=== PATIENT | male | born 1950 | race Caucasian/White ===

== ENCOUNTER 2019-01-18 02:13 | Emergency (ER) | payer MEDICARE, OTHER ==
--- NOTE | 2019-01-18 02:29 | EDM.PDOC ---
ED HPI GENERAL MEDICAL PROBLEM - General Stated Complaint: HEART PROBLEMS Time Seen by Provider: 01/18/19 02:25 Source of Information: Reports: Patient History Limitations: Reports: No Limitations - History of Present Illness INITIAL COMMENTS - FREE TEXT/NARRATIVE: 68-year-old male who states at about 12:45 AM he awoke from sleep feeling somewhat dizzy and "felt funny" and also a little clammy. He had no pain. He had no shortness of breath. He had no arm or leg weakness. He's had no nausea or vomiting. There was no chest or back pain. He did feel somewhat weak. The symptoms persisted and caused him to come to the emergency department for evaluation. He has no symptoms now. He feels back to normal. He has had another episode that was somewhat similar to this but it was associated with a defibrillator discharge. He did not feel any discharge from his defibrillator tonight. He has been eating and drinking normally. He has been taking his medications as directed. There are no other associated signs or symptoms. There are no other modifying factors. Onset: Today (12:45 AM) Duration: Improving (Essentially gone now.) Location: Reports: Other (No pain) Quality: Reports: Other (No pain) Severity: Moderate (The feelings of dizziness, mild clamminess were moderate) Improves with: Reports: None, Other (Nothing seemed to make the symptoms go away ) Worsens with: Reports: None, Other (Nothing seemed to produce the symptoms) Context: Reports: Other (Sleep) Associated Symptoms: Reports: Weakness (Transient) Treatments CUPOLA CHARGER INSULATION: Reports: Other (see below) (Nothing) - Related Data Allergies Allergy/AdvReac Type Severity Reaction Status Date / Time No Known Allergies Allergy Verified 01/18/19 02:38 Home Meds: Home Meds Calcium Carbonate/Vitamin D3 [Calcium 500-Vit D3 200 Tablet] 1 each PO DAILY 08/16 [History] Carvedilol [Coreg] 3.125 mg PO BID 07/16/13 [History] Indomethacin [Indocin] 50 mg PO TID PRN 07/16/13 [History] Multivitamin [Multi-Vitamin Daily] 1 each PO DAILY 07/16/13 [History] Nitroglycerin [Nitrostat] 0.4 mg SL ASDIRECTED PRN 07/16/13 [History] Valsartan [Diovan] 80 mg PO DAILY 07/16/13 [History] atorvaSTATin [Lipitor] 40 mg PO DAILY 07/16/13 [History] Aspirin [Halfprin] 81 mg PO DAILY 01/18/19 [History] Past Medical History Cardiovascular History: Reports: Afib (Paroxysmal A. fib On Eliquis), Automatic Implantable Cardioverter Defibrillators, CAD, Heart Murmur, High Cholesterol, Hypertension, [place] (1998), Pacemaker Hematologic History: Reports: Anticoagulation Therapy (On Eliquis) - Past Surgical History Cardiovascular Surgical History: Reports: Percutaneous Transluminal Angioplasty Neurological Surgical History: Reports: Other (See Below) (Back surgery) Musculoskeletal Surgical History: Reports: Knee Replacement (Right sided) Social & Family History - Tobacco Use Smoking Status *Q: Former Smoker (Quit 1998) - Alcohol Use Alcohol Use History: Yes Alcohol Use Frequency: Socially - Living Situation & Occupation Living situation: Reports: (Here with his ) 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 It is now resolved) HEENT: Reports: No Symptoms Respiratory: Reports: No Symptoms Cardiovascular: Reports: Lightheadedness (Transient with this episode) GI/Abdominal: Reports: No Symptoms, Other (Normal bowel movements with no blood in stool) : Reports: No Symptoms Musculoskeletal: Reports: No Symptoms Skin: Reports: Diaphoresis (As above) Neurological: Reports: Dizziness. Denies: Headache Hematologic/Lymphatic: Reports: No Symptoms Immunologic: Reports: No Symptoms ED EXAM, GENERAL - Physical Exam Exam: See Below Exam Limited By: No Limitations General Appearance: Alert, WD/WN, No Apparent Distress Eye Exam: Bilateral Eye: EOMI, Normal Inspection, PERRL Ears: Normal External Exam, Hearing Grossly Normal Nose: Normal Inspection Throat/Mouth: Normal Inspection, Normal Oropharynx, Normal Voice, No Airway Compromise Head: Atraumatic, Normocephalic Neck: Normal Inspection, Supple, Non-Tender, Full Range of Motion Respiratory/Chest: No Respiratory Distress, Lungs Clear, Normal Breath Sounds Cardiovascular: Normal Peripheral Pulses, Regular Rate, Rhythm, No JVD Peripheral Pulses: 2+: Radial (L), Radial (R), Dorsalis Pedis (L), Dorsalis Pedis (R) GI/Abdominal: Normal Bowel Sounds, Soft, Non-Tender, No Organomegaly, No Distention, No Mass Back Exam: Normal Inspection Extremities: Normal Inspection, Normal Range of Motion, Non-Tender, No Pedal Edema, Normal Capillary Refill Neurological: Alert, Oriented, CN II-XII Intact, Normal Cognition, No Motor/ Sensory Deficits Skin Exam: Warm, Dry, Intact, Normal Color, No Rash Lymphatic: No Adenopathy EKG INTERPRETATION EKG Date: 01/18/19 Time: 02: Rhythm: NSR Rate (Beats/Min): 74 [place]: Normal P-Wave: Present QRS: Other (Poor R-wave progression) ST-T: Other (Biphasic T waves laterally) QT: Normal Comparison: No Change (Compared to EKG performed on 02/2016.) Course - Vital Signs Last Recorded V/S: Last Vital Signs Temp 36.4 C 01/18/19 02:13 Pulse 74 01/18/19 02:13 Resp 16 01/18/19 02:13 BP 146/78 H 01/18/19 02:13 Pulse Ox 94 L 01/18/19 02:13 Orthostatic Blood Pressure [ 95/60 Standing] Orthostatic Blood Pressure [ 115/63 Sitting] Orthostatic Blood Pressure [ 129/69 Supine] - Orders/Labs/Meds Orders: Active Orders 24 hr Category Date Time Status EKG Documentation Completion [RC] ASDIRECTED Care 01/18/19 02:40 Active EKG 12 Lead [EK] Routine Ther 01/18/19 02:40 Ordered Labs: Laboratory Tests 01/18/19 01/18/19 01/18/19 Range/Units 02:50 02:50 02:50 WBC 9.7 (4.5-12.0) X10-3/uL RBC 4.43 (4.30-5.75) x10(6)uL Hgb 13.9 (13.5-17.8) g/dL Hct 42.1 (30.0-51.3) % MCV 95.0 (80-96) fL MCH 31.5 (27.7-33.6) pg MCHC 33.2 (32.2-35.4) g/dL RDW 12.9 (11.5-15.5) % Plt Count 153 (125-369) X10(3)uL MPV 9.4 (7.4-10.4) fL Neut % (Auto) 65.9 (46-82) % Lymph % (Auto) 21.2 (13-37) % [place] % (Auto) 8.6 (4-12) % Eos % (Auto) 2 (1.0-5.0) % Baso % (Auto) 2 (0-2) % Neut # (Auto) 6.4 (1.6-8.3) # Lymph # (Auto) 2.1 (0.6-5.0) # [place] # (Auto) 0.8 (0.0-1.3) # Eos # (Auto) 0.2 (0.0-0.8) # Baso # (Auto) 0.2 (0.0-0.2) # Sodium 142 (135-145) mmol/L Potassium 4.0 (3.5-5.3) mmol/L Chloride 107 (100-110) mmol/L Carbon Dioxide 24 (21-32) mmol/L BUN 20 H (7-18) mg/dL Creatinine 0.9 (0.70-1.30) mg/dL Est Cr Clr Drug Dosing 78.86 mL/min Estimated GFR (MDRD) > 60 (>60) BUN/Creatinine Ratio 22.2 H (9-20) Glucose 120 H (80-116) mg/dL Calcium 8.7 (8.6-10.2) mg/dL Magnesium 1.8 (1.8-2.5) mg/dL Total Bilirubin 0.4 (0.1-1.3) mg/dL AST 11 (5-25) IU/L ALT 26 (12-36) U/L Alkaline Phosphatase 118 H (56-112) IU/L Troponin I < 0.017 L (<0.017-0.056) ng/mL Total Protein 6.2 (6.0-8.0) g/dL Albumin 3.1 L (3.2-4.6) g/dL Globulin 3.1 g/dL Albumin/Globulin Ratio 1.0 - Re-Assessments/Exams Free Text/Narrative Re-Assessment/Exam: 01/18/19 03:43: Patient feels normal. He has been hemodynamically stable since he has been in the emergency department. His heart rhythm has been normal. His EKG is unchanged from previous. His blood tests are reassuringly normal. I am unsure what caused his symptoms tonight. I did recommend that he follow-up with his primary doctor and by this next week for recheck and he should come back for further dizziness or sweating. Departure - Departure Time of Disposition: 03:45 Disposition: Home, Self-Care 01 Condition: Good Clinical Impression: Dizziness of unknown cause - Discharge Information Referrals: Ross Munson PA-C [Primary Care Provider] - Additional Instructions: Your EKG was unchanged from 2016. Your blood tests were all reassuringly normal. I'm unsure why he had the dizzy/weak spell. As I mentioned, this could have been an abnormal rhythm with a heart that almost triggered a defibrillation but did not. He should rest. You should drink plenty of fluids. He should follow-up with her primary doctor by next week or recheck. Back to the emergency department for chest pain, shortness of breath, further dizziness , further sweating or any other concerning sign or symptom. - My Orders Last 24 Hours: My Active Orders 01/18/19 02:40 EKG Documentation Completion [RC] ASDIRECTED EKG 12 Lead [EK] Routine - Assessment/Plan Last 24 Hours: My Active Orders 01/18/19 02:40 EKG Documentation Completion [RC] ASDIRECTED EKG 12 Lead [EK] Routine
[2019-01-18 02:42] VITALS: BP 146/78
== END 2019-01-18 03:55 | disposition home or self-care (01) ==
LOC: FB.ED 02:13
DX: R42 Dizziness and giddiness (principal); I10 Essential (primary) hypertension; E78.00 Pure hypercholesterolemia, unspecified; I48.91 Unspecified atrial fibrillation; I25.10 Atherosclerotic heart disease of native coronary artery without angina pectoris; Z79.01 Long term (current) use of anticoagulants; Z79.82 Long term (current) use of aspirin; Z79.899 Other long term (current) drug therapy; Z87.891 Personal history of nicotine dependence
CPT/HCPCS: 36415; 80053; 83735; 84484; 85025; 93005; 93010; 99283; 99284-25

== ENCOUNTER 2021-07-31 07:07 | Emergency (ER) | payer MEDICARE, OTHER ==
[2021-07-31 07:51] VITALS: PULSE 72
--- NOTE | 2021-07-31 08:12 | EDM.PDOC ---
ED HPI GENERAL MEDICAL PROBLEM - General Chief Complaint: General Stated Complaint: SPIT BLOOD Time Seen by Provider: 07/31/21 08:01 Source of Information: Reports: Patient History Limitations: Reports: No Limitations - History of Present Illness INITIAL COMMENTS - FREE TEXT/NARRATIVE: 71-year-old male who reports at 4 AM he awoke from sleep with a feeling of gurgling in his chest and he coughed and spit up bright red blood. He states initially there was mostly all bright red blood in the sputum and it has continued since 4 AM until the last episode this bar which was about 7 AM and with each time it seems to be less. He does have a napkin that shows the last episode of bright red blood and it was a small amount with some mucus associated with the blood that was clear. There was no shortness of breath associated with this. There was no pain associated with this. He states that he can hear and feel some mild gurgling in his chest when he was breathing and then he would cough and produced the bright red blood and later some phlegm as well. He has no chest pain, back pain, neck pain or arm pain. In fact, he states he has no pain now and would rated his pain as a 0/10. He really has had no antecedent symptoms prior to this. He is on Eliquis, being chronically anticoagulated for atrial fibrillation [facility] and was told to come to the emergency department for evaluation. He does state that he has had this happen to him in the past beginning years ago but it only lasted for a very short period of time, resolving on its own. He presents to the emergency department via private vehicle with his . He states that in the past it only had lasted for about an hour at most. It was otherwise very similar in its presentation to today. He has had no fevers or chills. He has not felt bad. He has been eating and drinking. There are no other associated signs or symptoms. There are no other modifying factors.. Onset: Today (4 AM) Duration: Improving Location: Reports: Other (No pain.) Quality: Reports: Other (Not applicable.) Severity: Mild Improves with: Reports: Other (On its own over time.) Worsens with: Reports: None Context: Reports: Other (As above.) Associated Symptoms: Reports: No Other Symptoms Treatments ASSEMBLY MANAGER: Reports: Other (see below) (Nothing.) - Related Data Allergies Allergy/AdvReac Type Severity Reaction Status Date / Time No Known Allergies Allergy Verified 07/31/21 07:58 Home Meds: Home Meds Calcium Carbonate/Vitamin D3 [Calcium 500-Vit D3 200 Tablet] 1 each PO DAILY 07/16/13 [History] Indomethacin [Indocin] 50 mg PO TID PRN 07/16/13 [History] Multivitamin [Multi-Vitamin Daily] 1 each PO DAILY 07/16/13 [History] Nitroglycerin [Nitrostat] 0.4 mg SL ASDIRECTED PRN 07/16/13 [History] Valsartan [Diovan] 80 mg PO DAILY 07/16/13 [History] atorvaSTATin [Lipitor] 40 mg PO DAILY 07/16/13 [History] carvediloL [Coreg] 3.125 mg PO BID 07/16/13 [History] Aspirin [Halfprin] 81 mg PO DAILY 01/18/19 [History] levoFLOXacin [Levaquin] 750 mg PO DAILY 7 Days #7 tab 07/31/21 [Rx] Past Medical History Cardiovascular History: Reports: Afib, Automatic Implantable Cardioverter Defibrillators, CAD, Heart Murmur, High Cholesterol, Hypertension, [place], Pacemaker Other Cardiovascular History: heart attack 1998 Hematologic History: Reports: Anticoagulation Therapy (On Eliquis) - Infectious Disease History Infectious Disease History: Reports: Measles - Past Surgical History Cardiovascular Surgical History: Reports: Percutaneous Transluminal Angioplasty Musculoskeletal Surgical History: Reports: Knee Replacement Social & Family History - Tobacco Use Tobacco Use Status *Q: Unknown Ever Used Tobacco (Nonsmoker.) - Caffeine Use Caffeine Use: Reports: Coffee - Alcohol Use Alcohol Use History: Yes Days Per Week of Alcohol Use: 7 Number of Drinks Per Day: 3 Total Drinks Per Week: 21 Date of Last Drink: 07/30/21 - Recreational Drug Use Recreational Drug Use: No - Living Situation & Occupation Living situation: Reports: (Here with his ) Occupation: Retired (Technical cook at school) ED ROS GENERAL - Review of Systems Review Of Systems: See Below Constitutional: Denies: Fever, Chills, Diaphoresis HEENT: Denies: Nose Pain, Throat Pain Respiratory: Reports: Cough (Mild cough associated with this this morning but none prior to today.), Hemoptysis. Denies: Shortness of Breath, Wheezing, Pleuritic Chest Pain Cardiovascular: Denies: Chest Pain, Dyspnea on Exertion, Lightheadedness, Palpitations Endocrine: Denies: Fatigue GI/Abdominal: Denies: Abdominal Pain, Nausea : Denies: Dysuria, Hematuria Musculoskeletal: Denies: Neck Pain, Shoulder Pain, Arm Pain, Back Pain Skin: Denies: Diaphoresis, Rash Neurological: Denies: Dizziness, Headache Hematologic/Lymphatic: Reports: Easy Bleeding, Easy Bruising (Patient is on Eliquis.) ED EXAM, GENERAL - Physical Exam Exam: See Below Exam Limited By: No Limitations General Appearance: Alert, WD/WN, No Apparent Distress Eye Exam: Bilateral Eye: EOMI, Normal Inspection Ears: Normal External Exam, Hearing Grossly Normal Ear Exam: Bilateral Ear: Auricle Normal Nose: Normal Inspection, Normal Mucosa, No Blood Throat/Mouth: Normal Inspection, Normal Lips, Normal Oropharynx, Normal Voice, No Airway Compromise Head: Atraumatic, Normocephalic Neck: Normal Inspection, Supple, Non-Tender, Full Range of Motion Respiratory/Chest: No Respiratory Distress, No Accessory Muscle Use, Chest Non- Tender, Rhonchi (A few scattered rhonchi), Wheezing (A few scattered wheezes) Cardiovascular: Normal Peripheral Pulses, Regular Rate, Rhythm, No Edema, No Gallop Peripheral Pulses: 2+: Radial (L), Radial (R) GI/Abdominal: Normal Bowel Sounds, Soft, Non-Tender Back Exam: Normal Inspection Extremities: Normal Inspection, Normal Range of Motion, Non-Tender, No Pedal Edema Neurological: Alert, Oriented, CN II-XII Intact, Normal Cognition, No Motor/Sensory Deficits Psychiatric: Flat Affect Skin Exam: Warm, Dry, Intact, Normal Color, No Rash #1 Interpretation EKG Date: 07/31/21 Time: 08:25 Rhythm: NSR Rate (Beats/Min): 72 [place]: Normal P-Wave: Enlarged (Left atrial enlargement) QRS: Normal ST-T: Other (4 are with progression.) QT: Normal Comparison: No Change (No change in this EKG from an EKG performed on 01/18/2019.) Course - Vital Signs Last Recorded V/S: Last Vital Signs Temp 36.9 C 07/31/21 07:07 Pulse 72 07/31/21 07:07 Resp 18 07/31/21 07:07 BP 149/75 H 07/31/21 07:07 Pulse Ox 94 L 07/31/21 07:07 Orthostatic Blood Pressure [ 139/67 Standing] Orthostatic Blood Pressure [ 137/70 Sitting] Orthostatic Blood Pressure [ 175/85 Supine] - Orders/Labs/Meds Orders: Active Orders 24 hr Category Date Time Status Orthostatic Vital Signs [RC] ONETIME Care 07/31/21 08:21 Active Ang Chest [CT] Stat Exams 07/31/21 09:12 Taken Chest 2V [CR] Stat Exams 07/31/21 08:21 Taken Sodium Chloride 0.9% [Saline Flush] Med 07/31/21 09:13 Active 10 ml FLUSH ASDIRECTED PRN Peripheral IV Insertion Adult [OM.PC] Routine Oth 07/31/21 09:13 Ordered EKG 12 Lead [EK] Routine Ther 07/31/21 08:21 Ordered Medication Orders Sodium Chloride (Sodium Chloride 0.9% 10 Ml Syringe) 10 ml FLUSH ASDIRECTED PRN PRN Reason: Keep Vein Open Labs: Laboratory Tests 07/31/21 07/31/21 Range/Units 08:32 08:32 WBC 13.6 H (3.2-10.1) x10-3/uL RBC 4.58 (3.90-5.90) x10(6)uL Hgb 14.7 (12.9-17.7) g/dL Hct 44.5 (38.3-50.1) % MCV 97.2 (80.8-98.7) fL MCH 32.1 (27.0-33.3) pg MCHC 33.0 (28.7-35.3) g/dL RDW 13.2 (12.4-15.0) % Plt Count 139 (117-477) x10(3)uL MPV 9.4 (6.7-11.0) fL Neut % (Auto) 82.0 H (40.3-71.8) % Lymph % (Auto) 8.1 L (15.8-45.3) % [place] % (Auto) 7.6 (5.5-15.2) % Eos % (Auto) 1.8 (0.1-6.8) % Baso % (Auto) 0.5 (0.3-3.8) % Neut # (Auto) 11.2 H (1.7-6.9) x10-3/uL Lymph # (Auto) 1.1 (0.5-4.5) x10-3/uL [place] # (Auto) 1.0 (0.0-1.2) x10-3/uL Eos # (Auto) 0.2 (0.0-0.6) x10-3/uL Baso # (Auto) 0.1 (0.0-0.3) x10-3/uL Sodium 141 (135-145) mmol/L Potassium 4.0 (3.5-5.3) mmol/L Chloride 106 (100-110) mmol/L Carbon Dioxide 29 (21-32) mmol/L BUN 17 (7-18) mg/dL Creatinine 0.9 (0.70-1.30) mg/dL Est Cr Clr Drug Dosing 75.48 mL/min Estimated GFR (MDRD) > 60 (>60) BUN/Creatinine Ratio 18.9 (9-20) Glucose 98 (80-116) mg/dL Calcium 8.8 (8.6-10.2) mg/dL Magnesium 1.9 (1.8-2.5) mg/dL Total Bilirubin 1.4 H (0.1-1.3) mg/dL AST 14 D (5-25) IU/L ALT 21 D (12-36) U/L Alkaline Phosphatase 83 (56-112) IU/L Total Protein 7.0 (6.0-8.0) g/dL Albumin 3.8 (3.2-4.6) g/dL Globulin 3.2 g/dL Albumin/Globulin Ratio 1.2 Meds: Medications Generic Name Dose Route Start Last Admin Trade Name Freq PRN Reason Stop Dose Admin Sodium Chloride 10 ml 07/31/21 09:13 Sodium Chloride 0.9% 10 Ml Syringe FLUSH ASDIRECTED PRN Keep Vein Open Discontinued Medications Generic Name Dose Route Start Last Admin Trade Name Freq PRN Reason Stop Dose Admin Sodium Chloride 500 mls @ 999 mls/hr 07/31/21 09:13 07/31/21 09:55 Normal Saline IV 07/31/21 09:43 999 mls/hr .BOLUS ONE Administration Iopamidol 100 ml 07/31/21 09:20 07/31/21 09:50 Iopamidol 755 Mg/Ml 100 Ml Bottle IV 07/31/21 09:21 100 ml . DIRECTED ONE Administration - Radiology Interpretation Free Text/Narrative:: Chest x-ray PA and lateral shows consolidation in the right upper lobe per my read. CTA of the chest showed right upper and a minimal right middle lobe lung infiltrates. There was no evidence of PE or aortic dissection. There is a small hiatal hernia. This was all per the [facility] radiologist. - Re-Assessments/Exams Free Text/Narrative Re-Assessment/Exam: 07/31/21 09:05: All of the patient's blood tests were reassuring. I blood cell count was 13.6. Hemoglobin is 14.7. Platelet count is 139K. Sodium is 141. Potassium is 4.0. Bicarbonate is 29. BUN is 17 and creatinine is 0.9. Glucose is 98. Magnesium is 1.9. Total bili is 1.4 but the other LFTs are normal. With the patient's chest x-ray showing the right medial upper lobe consolidation, I am concerned that this either represents a collection of blood forming this infiltrate or some potential tumor within this area or a PE. Therefore, I will send the patient for CTA of his chest. I have discussed this with the patient and his and he is in agreement with this plan. 07/31/21 10:40: The CTA of the chest showed no evidence of PE. There was consolidation in the right upper and right middle lung lobes. The patient has had 1 other episode of hemoptysis but the blood was pink tinged and only small amount mixed with mucus. I will call and discussed the patient's case with the call manager at the [facility] in [place] to get advice on whether to continue or discontinue the Eliquis. I have discussed all this with the patient and with his . 07/31/21 10:55: I did call the [facility] in [place] and the charge nurse is attempting to get the call manager to call him back. I will be waiting for the call back. 07/31/21 11:20: I discussed the patient's case with Dr. Du, call manager at the [facility] in [place], and she feels that the patient has a pulmonary problem and needs to see a purchasing specialist, she did give advice on the Eliquis. She felt that it would be gamez to place the patient on antibiotics to treat for potential pneumonia. She also felt that the Eliquis should be contin ued unless the patient's hemoptysis or symptoms and at that point she would recommend discontinuation of the Eliquis temporarily. Also felt that the patient needed to follow-up with primary provider on Monday or Monday of this coming week and would definitely need referral to a manager outpatient for workup into this hemoptysis with probable bronchoscopy as well. All this was discussed with the patient and his . A prescription for Levaquin was given to them. And reasons for return to the emergency department were discussed with the patient and with his while the patient was in the emergency department and were detailed in the patient's discharge instructions. Departure - Departure Time of Disposition: 11:23 Disposition: Home, Self-Care 01 Condition: Good (Stable) Clinical Impression: Hemoptysis, Chronic anticoagulation Right upper lobe pneumonia Qualifiers: Pneumonia type: due to unspecified organism Qualified Code(s): J18.9 - Pneumonia, unspecified organism - Discharge Information Prescriptions: levoFLOXacin [Levaquin] 750 mg PO DAILY 7 Days #7 tab Instructions: Hemoptysis, [id number], Community-Acquired Pneumonia, Adult, [id number] Referrals: PCP,Not In Area [Primary Care Provider] - Forms: ED Department Discharge Additional Instructions: Your blood tests were all reassuring. Your chest x-ray showed evidence of pneumonia or consolidation in your right upper and middle lung. The CT scan of your chest showed no evidence of blood clot and there was this consolidation or pneumonia in your right upper and middle lung. Not show any evidence of tumor. Your coughing up blood or hemoptysis seems to be resolving. I discussed your case with the call manager external relations director at the [facility] in [place] and she recommended that for now, you should continue to take the Eliquis you should only stop it if your coughing up blood or hemoptysis is worsening. I am also going to treat you with antibiotics for this potential pneumonia. You will need to follow-up with your primary provider on Monday or Monday of this coming week as you will need referral to see a pulmonary or lung specialist. Increase your fluid intake. No strenuous activity. Back to an emergency department for trouble breathing, high fever, severe weakness, worsening coughing up blood or any other concerning signs or symptoms. Sepsis Event Note (ED) - Focused Exam Vital Signs: Vital Signs Temp Pulse Resp BP Pulse Ox 07/31/21 07:07 36.9 C 72 18 149/75 H 94 L - My Orders Last 24 Hours: My Active Orders 07/31/21 08:21 Orthostatic Vital Signs [RC] ONETIME Chest 2V [CR] Stat EKG 12 Lead [EK] Routine 07/31/21 09:12 Ang Chest [CT] Stat 07/31/21 09:13 Sodium Chloride 0.9% [Saline Flush] 10 ml FLUSH ASDIRECTED PRN Peripheral IV Insertion Adult [OM.PC] Routine - Assessment/Plan Last 24 Hours: My Active Orders 07/31/21 08:21 Orthostatic Vital Signs [RC] ONETIME Chest 2V [CR] Stat EKG 12 Lead [EK] Routine 07/31/21 09:12 Ang Chest [CT] Stat 07/31/21 09:13 Sodium Chloride 0.9% [Saline Flush] 10 ml FLUSH ASDIRECTED PRN Peripheral IV Insertion Adult [OM.PC] Routine
[2021-07-31] MEDS ORDERED: Sodium Chloride 0.9% 500 ML IV ONE (09:13)
[2021-07-31] MEDS ORDERED: Sodium Chloride 0.9% 10 ML Syringe FLUSH PRN (09:13)
[2021-07-31] MEDS ORDERED: Iopamidol 755 Mg/ML 100 ML Bottle IV ONE (09:20)
[2021-07-31 11:55] VITALS: BP 149/68
== END 2021-07-31 11:30 | disposition home or self-care (01) ==
LOC: FB.ED 07:07
DX: R04.2 Hemoptysis (principal); J18.9 Pneumonia, unspecified organism; D68.9 Coagulation defect, unspecified; I48.91 Unspecified atrial fibrillation; I25.10 Atherosclerotic heart disease of native coronary artery without angina pectoris; E78.00 Pure hypercholesterolemia, unspecified; I10 Essential (primary) hypertension; Z95.0 Presence of cardiac pacemaker; Z79.82 Long term (current) use of aspirin; Z79.899 Other long term (current) drug therapy
CPT/HCPCS: 36415; 71046; 71275; 80053; 83735; 85025; 93005; 99285; J7040; Q9967

== ENCOUNTER 2023-06-28 20:23 | Emergency (ER) | payer OTHER, MEDICARE ==
[2023-06-28] MEDS ORDERED: Midazolam 1 MG/ML 2 ML SDV IV ONE (20:24)
[2023-06-28] MEDS ORDERED: Propofol 200 MG/20 ML SDV IV ONE (20:24)
[2023-06-28] MEDS ORDERED: Flumazenil 0.1 MG/ML 5 ML MDV IV ONE (20:24)
[2023-06-28] MEDS ORDERED: Aspirin 81 MG Tab.Chew PO ONE (20:38)
[2023-06-28] MEDS ORDERED: Sodium Chloride 0.9% 10 ML Syringe FLUSH PRN (20:38)
[2023-06-28 20:45] LABS: BASOPHILS ABSOLUTE AUTO 0.1 x10-3/uL (0.0-0.3); BASOPHILS PERCENT AUTO 0.7 % (0.3-3.8); EOSINOPHILS ABSOLUTE AUTO 0.2 x10-3/uL (0.0-0.6); EOSINOPHILS PERCENT AUTO 2.3 % (0.1-6.8); HEMATOCRIT 42.3 % (38.3-50.1); HEMOGLOBIN 14.3 g/dL (12.9-17.7); LYMPHOCYTES ABSOLUTE AUTO 2.1 x10-3/uL (0.5-4.5); LYMPHOCYTES PERCENT AUTO 20.2 % (15.8-45.3); MEAN CORPUSCULAR HEMOGLOBIN 32.8 pg (27.0-33.3); MEAN CORPUSCULAR HGB CONC 33.8 g/dL (28.7-35.3); MEAN PLATELET VOLUME 10.1 fL (6.7-11.0); MONOCYTES ABSOLUTE AUTO 0.9 x10-3/uL (0.0-1.2); MONOCYTES PERCENT AUTO 8.8 % (5.5-15.2); PLATELET COUNT,PLT 175 x10(3)uL (117-477); RED BLOOD CELL COUNT 4.36 x10(6)uL (3.90-5.90); RED CELL DISTRIBUTION WIDTH 13.5 % (12.4-15.0); WHITE BLOOD CELL COUNT,WBC 10.2 x10-3/uL (3.2-10.1)
[2023-06-28] MEDS ORDERED: Sodium Chloride 0.9% 1,000 ML IV SCH (20:45)
[2023-06-28] MEDS ORDERED: Amiodarone 150 MG/3 ML SDV IVPUSH ONE (20:46)
[2023-06-28 20:49] LABS: BLOOD UREA NITROGEN,BUN 17 mg/dL (7-18); BUN/CREATININE RATIO 14.2 (9-20); CARBON DIOXIDE,CO2 23 mmol/L (21-32); CHLORIDE,CL 105 mmol/L (100-110); CREATININE 1.2 mg/dL (0.70-1.30); ESTIMATED GFR 63 mL/min (>60); GLUCOSE RANDOM 149 mg/dL (80-116); SODIUM,NA 139 mmol/L (135-145)
[2023-06-28 20:54] LABS: A/G RATIO 1.1; ALANINE AMINOTRANSFERASE,ALT 29 U/L (12-36); ALBUMIN 3.6 g/dL (3.2-4.6); ALKALINE PHOSPHATASE 86 IU/L (56-112); ASPARTATE AMNIOTRANSFERASE,AST 17 IU/L (5-25); BILIRUBIN TOTAL 0.7 mg/dL (0.1-1.3); MAGNESIUM 1.8 mg/dL (1.8-2.5)
[2023-06-28 20:56] LABS: INR 0.98 (1.00-1.24); PROTHROMBIN TIME 10.1 sec (9.0-11.1); PTT,PARTIAL THROMBOPLSTIN TIME 27.4 SECONDS (24.4-33.2)
[2023-06-28] MEDS ORDERED: Magnesium Sulfate/Water 2 GM in Premix Bag 1 BAG IV ONE (21:53)
[2023-06-29 02:08] VITALS: BP 125/83; PULSE 174
== END 2023-06-28 23:00 ==
LOC: FB.ED 20:23
DX: R07.89 Other chest pain (principal); I47.20 Ventricular tachycardia, unspecified; I48.91 Unspecified atrial fibrillation; I10 Essential (primary) hypertension; I25.2 Old myocardial infarction; Z95.0 Presence of cardiac pacemaker
CPT/HCPCS: 71045; 80053; 83735; 84484; 85025; 85610; 85730; 92960; 93005; 96361; 96365; 96366; 96368; 99152; 99153; 99285; A9270; J0282; J2250; J2704; J3475; J3490; J7030

== ENCOUNTER 2023-07-08 16:51 | Emergency (ER) | payer OTHER, MEDICARE ==
[2023-07-08] MEDS ORDERED: Sodium Chloride 0.9% 10 ML Syringe FLUSH PRN (17:01)
[2023-07-08] MEDS ORDERED: Amiodarone 150 MG/3 ML SDV IVPUSH ONE (17:06)
[2023-07-08] MEDS ORDERED: Metoprolol Tartrate 5 MG/5 ML SDV IVPUSH ONE ×3 (17:09→17:11)
[2023-07-08 17:22] LABS: BASOPHILS PERCENT AUTO 0.4 % (0.3-3.8); BLOOD UREA NITROGEN,BUN 27 mg/dL (7-18); BUN/CREATININE RATIO 22.5 (9-20); CALCIUM 9.3 mg/dL (8.6-10.2); CARBON DIOXIDE,CO2 28 mmol/L (21-32); CHLORIDE,CL 106 mmol/L (100-110); CREATININE 1.2 mg/dL (0.70-1.30); EOSINOPHILS ABSOLUTE AUTO 0.1 x10-3/uL (0.0-0.6); EOSINOPHILS PERCENT AUTO 0.8 % (0.1-6.8); ESTIMATED GFR 63 mL/min (>60); GLUCOSE RANDOM 143 mg/dL (80-116); HEMOGLOBIN 14.8 g/dL (12.9-17.7); LYMPHOCYTES ABSOLUTE AUTO 1.4 x10-3/uL (0.5-4.5); LYMPHOCYTES PERCENT AUTO 14.7 % (15.8-45.3); MEAN CORPUSCULAR HEMOGLOBIN 32.7 pg (27.0-33.3); MEAN CORPUSCULAR HGB CONC 33.7 g/dL (28.7-35.3); MEAN CORPUSCULAR VOLUME 97.2 fL (80.8-98.7); MEAN PLATELET VOLUME 9.9 fL (6.7-11.0); MONOCYTES ABSOLUTE AUTO 0.8 x10-3/uL (0.0-1.2); MONOCYTES PERCENT AUTO 8.2 % (5.5-15.2); NEUTROPHILS ABSOLUTE AUTO 7.5 x10-3/uL (1.7-6.9); NEUTROPHILS PERCENT AUTO 75.9 % (40.3-71.8); PLATELET COUNT,PLT 206 x10(3)uL (117-477); RED BLOOD CELL COUNT 4.52 x10(6)uL (3.90-5.90); RED CELL DISTRIBUTION WIDTH 13.2 % (12.4-15.0); SODIUM,NA 142 mmol/L (135-145); WHITE BLOOD CELL COUNT,WBC 9.8 x10-3/uL (3.2-10.1)
[2023-07-08 17:27] LABS: ALANINE AMINOTRANSFERASE,ALT 25 U/L (12-36); ALBUMIN 3.6 g/dL (3.2-4.6); ALKALINE PHOSPHATASE 93 IU/L (56-112); ASPARTATE AMNIOTRANSFERASE,AST 11 IU/L (5-25); BILIRUBIN TOTAL 0.8 mg/dL (0.1-1.3); MAGNESIUM 1.9 mg/dL (1.8-2.5); PROTEIN TOTAL,TP 7.1 g/dL (6.0-8.0)
[2023-07-08] MEDS ORDERED: Sodium Chloride 0.9% 1,000 ML IV SCH (17:30)
[2023-07-08 17:31] LABS: INR 1.02 (1.00-1.24); PROTHROMBIN TIME 10.5 sec (9.0-11.1)
[2023-07-08 17:34] LABS: TROPONIN I 18.7 pg/mL (4.0-60.3)
[2023-07-08 17:35] LABS: PTT,PARTIAL THROMBOPLSTIN TIME 28.9 SECONDS (24.4-33.2)
[2023-07-08 17:39] VITALS: BP 106/57; PULSE 148
[2023-07-08] MEDS ORDERED: Diltiazem 25 MG/5 ML SDV IVPUSH ONE (17:43)
== END 2023-07-08 20:22 ==
LOC: FB.ED 16:51
DX: I47.20 Ventricular tachycardia, unspecified (principal); E78.5 Hyperlipidemia, unspecified; I10 Essential (primary) hypertension; I25.10 Atherosclerotic heart disease of native coronary artery without angina pectoris; I48.91 Unspecified atrial fibrillation; I25.2 Old myocardial infarction; Z79.01 Long term (current) use of anticoagulants; Z79.899 Other long term (current) drug therapy
CPT/HCPCS: 36415; 71045; 80053; 83735; 83880; 84484; 85025; 85610; 85730; 93005; 96365; 96366; 96375; 99285-25; J0282; J3490; J7030